=== PATIENT | male | born 2005 | race Caucasian/White ===

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

== ENCOUNTER 2024-01-25 19:04 | Emergency (ER) | payer OTHER, SELFPAY ==
[2024-01-25 19:09] VITALS: BP 131/89; PULSE 82; RESP 16; TEMP 36.6; O2SAT 100
--- NOTE | 2024-01-25 19:10 | ED.GENADULT ---
HPI - General Adult General Chief complaint: Upper Respiratory Infection Stated complaint: Sore Throat Source: patient, RN notes reviewed and old records reviewed Mode of arrival: ambulatory Limitations: no limitations History of Present Illness HPI narrative: [age] year male patient presents to [facility] with complaint sore throat with headache that started 2 days ago. Patient states found today that his girlfriend is positive for strep throat. Patient denies any other symptoms. Related Data Home Medications Medication Instructions Recorded Confirmed No Home Medications 01/25/24 01/25/24 Allergies Allergy/AdvReac Type Severity Reaction Status Date / Time No Known Allergies Allergy Verified 01/25/24 19:17 Review of Systems Constitutional: Constitutional: Reports no additional constitutional complaints, Denies body ache(s), Denies chills, Denies fatigue, Denies fever(s) and Reports headache(s) Eyes: Eyes: Reports no additional eye complaints and Denies blurry vision ENT: Reports system reviewed and no additional complaints, except as documented, Denies vertigo, Denies dizziness, Denies ear discharge, Denies otalgia, Denies facial pain, Denies headache(s), Denies nasal congestion, Denies nasal discharge, Denies sinus pain, Denies sinus pressure and Reports sore throat Cardiovascular: Cardiovascular: Reports no additional cardiovascular complaints, Denies chest pain, Denies chest pain at rest, Denies rapid heart rate and Denies dyspnea Respiratory: Respiratory: Reports no additional respiratory complaints, Denies chest congestion, Denies cough, Denies pain on inspiration, Denies pain with cough and Denies dyspnea Gastrointestinal: Gastrointestinal: Denies abdominal pain, Denies diarrhea, Denies nausea and Denies vomiting Integumentary/Breasts: Skin/Breast: Denies rash Neurologic: Reports system reviewed and no additional complaints, except as documented, Denies vertigo, Denies dizziness and Reports headache(s) Endocrine: Endocrine: Denies fatigue [facility] Social History Social History Smoking status: Never smoker Lack of Transportation: No Lack of Food: Never True Current Housing: I Have Housing Concerned About Future Housing: No Difficulty Paying Gas/Electric Bills: No Difficulty Paying for Meds: No Currently Unemployed: No Education: High School Diploma/GED Difficulty w/ Childcare or Family Care: No Comments At the time of my signature, I reviewed and agree with the nursing past medical, surgical, social, and family history. There is no relevant family history pertinent to the patient complaint. Exam Const: General: cooperative, healthy appearing, no acute distress and well nourished Nutritional Appearance: well nourished Orientation/consciousness: patient oriented x3 Limitations: no limitations HENMT: Head: normal to inspection and normocephalic Ears: external ears normal, TM's normal bilaterally, EAC's normal and mastoids normal Face/Nose/Sinus: normal facial exam Face and sinus: normal facial exam Mouth: Yes Normal oral and palatal mucosa present, Yes oropharynx normal and Yes moist mucous membranes Throat: tonsils normal, uvula midline, abnormal tonsil bilateral erythema, posterior oropharynx abnormal erythema, no postnasal drainage and no uvular edema Eyes: General: appearance normal, both eyes and all related structures Sclera: sclerae normal Pupils: Equal, round and reactive pupils present Resp: Effort & Inspection: normal respiratory effort, able to speak in complete sentences, no audible wheezes, no cough, no respiratory distress and no retractions Auscultation: clear to auscultation bilaterally, no crackles, no rales, no rhonchi and no wheezes Cardio: Rate: regular rate Rhythm: regular rhythm Skin: General skin exam: normal color and no rashes or lesions noted Neuro: General: patient oriented x3 Cranial nerve
[2024-01-25 19:18] VITALS: BP 131/89; PULSE 82; RESP 16; TEMP 36.6; O2SAT 100
[2024-01-25 19:19] VITALS: BP 123/79; PULSE 108; RESP 20; TEMP 37.1; O2SAT 100
== END 2024-01-25 19:34 | disposition home or self-care (01) ==
PROVIDERS: Emergency Provider Registered Nurse; PCP Internal Medicine
DX: J02.9 Acute pharyngitis, unspecified (principal); Z20.822 Contact with and (suspected) exposure to COVID-19
CPT/HCPCS: 87081; 87426; 87804; 87880; 99213; G0463

== ENCOUNTER 2025-02-23 23:51 | Emergency (ER) | payer OTHER, SELFPAY ==
--- NOTE | ~2025-02-23 | XR_ITS ---
Right ankle Technique: AP, oblique, and lateral views were obtained. Clinical History: Injury Findings: No acute fracture or dislocation is seen. Osseous alignment is anatomic. Ankle mortise and other visualized joint spaces are preserved. Prominent anterior and lateral soft tissue swelling note d. Impression: No fracture or dislocation. Prominent anterior and lateral soft tissue swelling. Reviewed, dictated and finalized at location M. Impression: No fracture or dislocation. Prominent anterior and lateral soft tissue swelling.
--- OUTSIDE RECORDS SUMMARY | 2025-02-23 23:53 | XMS_ITS | Clinical Summary ---
Author Organization [address] Address [address] [place] [id number] Care Team Providers Care Concert Pianist Name Role Phone Raghav Ingram MD Primary Care Provider Allergies No known active allergies Medications albuterol HFA (PROVENTIL HFA,VENTOLIN HFA,PROAIR HFA) 90 mcg/actuation inhaler Inhale 2 puffs every 6 (six) hours as needed for wheezing 1 each 1 3 Active Additional Information Patient not taking.Reported on 01/20/2023 fexofenadine HCl (ESTEE ORAL) Take by mouth Active fluticasone propionate (FLONASE NASL) Administer into affected nostril(s) Active albuterol HFA (PROVENTIL HFA,VENTOLIN HFA,PROAIR HFA) 90 mcg/actuation inhalerIndicati ons:Shortness of breath Inhale 2 puffs every 6 (six) hours as needed for wheezing or shortness of breath 1 each 3 Active Hospital, Clinic, or Other Facility Administered Medication Ordered Dose Route Frequency Start Date End Date Status albuterol 2.5 mg /3 mL (0.083 %) nebulizer solution 2.5 mgIndications:Shortne ss of breath 2.5 mg nebu 4 times daily (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 Never 11/26/2022 Average Number of Drinks Not on file 023 Frequency of Binge Drinking Not on file 11/09 Personal Safety Answer Date Recorded Getting School Help Needed Not on file 11/15 Sex and Gender Information Value Date Recorded Sex Assigned at Not on file Legal Sex Male 7:33 PM [employer] Gender Identity Not on file Sexual Orientation Not on file Obstetrics History Last Filed Vital Signs Vital Sign Reading Time Taken Comments Blood Pressure 133/66 01/21/2023 8:37 PM CDT Pulse 114 01/21/2023 9:32 PM CDT Temperature 36.9 C (98.4 F) 01/21/2023 8:37 PM CDT Respiratory Rate 20 01/21/2023 9:32 PM CDT Oxygen Saturation 98% 01/21/2023 9:32 PM CDT Inhaled Oxygen Concentration - - Weight 77.7 kg (171 lb 4.8 oz) 01/21/2023 8:37 P M CDT Height 180.3 cm (5' 11 ) 01/20/2023 10:50 AM CDT Body Mass Index 23.89 01/20/2023 10:50 AM CDT Plan of Treatment Health Maintenance Due Date Last Done Comments Depression Screening 2004 Hepatitis C Screening 2004 Regular Well Visit/Exam 18-64 2022 Covid-19 Vaccine (2023- 5 season) 2024 03/08/2021, 02/15/2021 Influenza Vaccine (Season Ended) 2025 10/28/2005, 10/28/2005, 09/22/2005, Additional history exists DTaP/Tdap/Td Vaccine (8 - Td or Tdap) 06/17/2032 06/17/2022, 06/14/2015, 06/12/2009, Additional history exists Pneumococcal vaccine <65 Completed 005, 07/15/2005, 2004, Additional history exists Hepatitis B Screening Completed 12/30/2006 , 06/25/2006, 09/22/2005, Additional history exists Varicella Vaccines Completed 06/12/2009, 07/14/2007 HPV Vaccines Completed 12/04/2020, 12/2019, 05/31/2020 Meningococcal Vaccine Completed 05/28/2021, 015 Meningococcal B Vaccine Completed 11/13/2022, 06/03 Insurance [facility] Care Teams Concert Pianist Relationship Specialty Start Date End Date Raghav Ingram MD [address] [place] [address] PCP - General Pediatrics 11/26/22
--- OUTSIDE RECORDS SUMMARY | 2025-02-23 23:53 | XMS_ITS | Continuity of Care Document ---
Author Organization [facility] Address [address] [place] [address] Phone Care Team Providers Care Solutions Sales Executive Name Role Phone Chao PT,DPT,ATC,LAT, Kj Unavailable Asuncion vailable Procedures Procedure Date Progress Note Therapeutic Exercise Therapeutic Activities Neuromuscular Re-Ed Manual Therapy Therapeutic Exercise Neuromuscular Re-Ed Therapeutic Exercise Neuromuscular Re-Ed Manual Therapy Therapeutic Exercise Manual Therapy Therapeutic Exercise Neuromuscular Re-Ed Manual Therapy PT Evaluation Low Complexity Therapeutic Exercise Manual Therapy Advance Directives Directive Yes / No Effective Date File Name No Information Encounters Encounter Description Practice Location Reason(s) For Visit Diagnoses Date Provider Providers [facility]ied on [facility], [address], [place], [place], [id number], tel:[phone] [place] Achilles tendinitis, unspecified legShort Achilles tendon (acquired), unspecified ankleJuvenile osteochondrosis of tarsus, unspecified ankleStiffness of right ankle, not elsewhere classifiedUnspecif ied abnormalities of gait and mobility Apr-0 4-201 [address] [place], [address], . tel:[phone] [facility], [address], [id number], [place] tel:[phone] [place] Achilles tendinitis, unspecified legShort Achilles tendon (acquired), unspecified ankleJuvenile osteochondrosis of tarsus, unspecified ankleStiffness of right ankle, not elsewhere classifiedUnspecif ied abnormalities of gait and mobility Apr-0 2-201 [address] [place], [address], . tel:[phone] [facility], [address], [id number], [place] tel:[phone] [place] [facility] Achilles tendinitis, unspecified legShort Achilles tendon (acquired), unspecified ankleJuvenile osteochondrosis of tarsus, unspecified ankleStiffness of right ankle, not elsewhere classifiedUnspecif ied abnormalities of gait and mobility Mar-2 5-201 [address] [place], [address], . tel:[phone] [facility], [address], [id number], [place] tel:[phone] [place] Achilles tendinitis, unspecified legShort Achilles tendon (acquired), unspecified ankleJuvenile osteochondrosis of tarsus, unspecified ankleStiffness of right ankle, not elsewhere classifiedUnspecif ied abnormalities of gait and mobility Mar-2 1- [address] [place], [address], [place]. tel:[phone] [facility], [address], [id number], [place] tel:[phone] [place] Achilles tendinitis, unspecified legShort Achilles tendon (acquired), unspecified ankleJuvenile osteochondrosis of tarsus, unspecified ankleStiffness of right ankle, not elsewhere classifiedUnspecif ied abnormalities of gait and mobility Jan-2 0-201 9 [address] [place], [address], [place]. tel: [phone] [facility], [address], [place], [place], [id number], [place] tel:[phone] [place] Achilles tendinitis, unspecified legShort Achilles tendon (acquired), unspecified ankleJuvenile osteochondrosis of tarsus, unspecified ankleStiffness of right ankle, not elsewhere classifiedUnspecif ied abnormalities of gait and mobility Jan-1 8201 [address] [place], [address], [place]. tel: [phone] Family History Family Member Type Diagnosis Age At Onset No Information Payers Payer name Insurance type Covered green party ID Authoraloka tigriffin(s) [facility] [id number] Social History Type Description Quantity Date Captured Comments Sex Male Smoking Status No Information Chief Complaint And Reason For Visit No Information Reason For Referral Reason For Referral No Information History Of Present Illness Encounter Date Complaint History Of Prese nt Illness No Information Functional Status Date Functional Assessmen t No Information Instructions Date Instruction Additional Infor mation No Information Assessments Type Assessment Date No Information Patient Care Teams Name Effective Dates (start - stop) Status Members No Information
--- OUTSIDE RECORDS SUMMARY | 2025-02-23 23:53 | XMS_ITS | Referral Summary ---
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 [address] [place] [address] [facility] CHO[facility] H[facility]/PPO Address: [address] [address] [place] [address] [facility] CHOICE PLUS [facility] HMO/PPO Address: [address] [address] [place] [address] Care Teams Siphon Operator Relationship Specialty Start Date End Date Raghav Ingram MD [address] [place] [address] PCP - General Pediatrics 11/26/22
--- OUTSIDE RECORDS SUMMARY | 2025-02-23 23:53 | XMS_ITS | Clinical Summary ---
Author Organization [facility] Address [address] [place] [address] Phone Care Team Providers Care Ornamental Painter Name Role Phone Raghav Ingram MD Primary Care Provider Allergies Active Allergy Reactions Criticality Noted Date Comments No Known Drug Allergy Unknown 03/22/2013 Medications Fexofenadine HCl (ESTEE PO) Take 1 Tablet by mouth daily. 24 hour Active Fluticasone Propionate (FLONASE NA) 2 Sprays by Nasal route daily. Active albuterol (PROVENTIL, VENTOLIN) (2.5 MG/3ML) 0.083% Nebulizer Soln take 2.5 mg by inhalation. 3 Active guaiFENesin (MUCINEX PO) Take by mouth. Ac tive Acetaminophen (TYLENOL PO) Take by mouth. Ac tive Polyethylene Glycol 3350 (MIRALAX PO) Take by mouth. Ac tive docusate sodium (COLACE) 100 MG Capsule Take 1 Capsule by mouth 2 times daily. 180 Capsule 3 3 Active Additional Information Patient not taking.Reported on 09/29/2023 Active Problems No known active problems Immunizations Immunization Administration Dates Next Due Covid-19, Mrna, Lnp-s, Pf, 3 0 Mcg/0.3 Ml Dose (MediSens) 03/08/2021,02/15/2021 DTAP VACCINE 09/22/2005, 5,2004,08/26 DTAP-IPV 06/12/2009 HEP A/HEP B Combined Vaccine 12/30/2006,06/25/20 06 HEP B/HIB Combined Vaccine 09/22/2005,2004 ,2004 Hepatitis A Vaccine 06/25/2006 Human Papillomavirus (HPV) 9 -valent Vaccine 12/04/2020,07/11/2020,05/31/2020 Inactivated Polio Vaccine 07/15/2005,2004, 2004 Influenza Vaccine less than 3 yrs 10/28/2005, MMR Vaccine 06/12/2009,07/15/2005 Meningococcal Group B OMV 11/13/2022,06/03/2022 Meningococcal MCV4O 05/28/2021 PUR MENINGOCOCCAL MCV4O 06/14/2015 PUR POLIO IPV INACTIVATED SQ/IM 06/14/2015 PUR TDAP 7+ YRS IM 06/14/2015 Pneumococcal Vaccine Peds - 7 Valent 04/2005,2004,2004,08/26 TDAP Vaccine 06/17/2022 Varicella Vaccine Live 06/12/2009,07/14/2007 Family History Relation Name Status Comments Father Alive Mother Alive Social History Tobacco Use Types Packs/Day Years Used Date Smoking Tobacco: Never Smokeless Tobacco: Never Tobacco Cessation:Counseling Given: No Alcohol Use Standard Drinks/Week Comments Never 0 (1 standard drink = 0.6 oz pur e alcohol) PHQ-2 Answer Date Recorded Total Score - Questions 1-9 0 09/10 Sex and Gender Information Value Date Recorded Sex Assigned at Male 06/23/2023 9:34 AM CDT Legal Sex Male 3:00 AM OVERHEAD IRRIGATOR Gender Identity Male 06/23/2023 9:34 AM CDT Sexual Orientation Not on file Last Filed Vital Signs Vital Sign Reading Time Taken Comments Blood Pressure 134/70 10/04/2024 10:07 AM OVERHEAD IRRIGATOR Pulse 88 10/04/2024 10:07 AM OVERHEAD IRRIGATOR Temperature 36.9 C (98.5 F) 01/26/2023 9:15 AM CDT Respiratory Rate 20 10/04/2024 10:0 7 AM OVERHEAD IRRIGATOR Oxygen Saturation 96% 01/26/2023 9:15 AM CDT Inhaled Oxygen Concentration - - Weight 78.4 kg (172 lb 12.8 oz) 024 10:07 AM OVERHEAD IRRIGATOR Height 180.2 cm (5' 10.95 ) 10/04/2024 10:07 AM OVERHEAD IRRIGATOR Body Mass Index 24.14 10/04/2024 10:07 AM OVERHEAD IRRIGATOR Plan of Treatment Health Maintenance Due Date Last Done Comments Hepatitis C Virus (HCV) Screening 2004 Influenza Immunization (#1) 2024 10/28/2005, 1 2004 SARS-COV-2 Immunization ( season) 2024 03/08/2021, 02/15/2021 DTaP/Tdap/Td Immunization (8 - Td or Tdap) 06/17/2032 06/17/2022, 06/14/2015, 06/12/2009, Additional history exists Respiratory Syncytial Virus (RSV) Immunization (Adult) (1 - 1-dose 75+ series) 2079 Pneumococcal Immunization Combined Aged Out 07/15/2005, 2004, 2004, Additional history exists No longer eligible based on patient's age to complete this topic Hepatitis A Immunization Discontinued 007, 06/25/2006, 06/25/2006 Hepatitis B Immunization Completed 007, 06/25/2006, 09/22/2005, Additional history exists Measles Mumps Rubella (MMR) Immunization Discontinued 06/12/2009, 07/15/2005 Varicella Immunization Discontinued 06/12/2009, 2006 Polio (IPV) Immunization Discontinued 015, 06/12/2009, 07/15/2005, Additional history exists Human Papillomavirus (HPV) Immunization Completed 12/04/2020, 07/11/2020, 05/31/2020 Meningococcal Immunization (ACWY) Completed 05/28/2021, 06/14/2015 Meningococcal B Immunization Completed 11/13/2022, 06/03/2022 Rotavirus Immunization Aged Out No lo nger eligible based on patient's age to complete this topic Insurance [facility] Care Teams Ornamental Painter Relationship Specialty Start Date End Date Raghav Ingram MD [address], [place] [id number] PCP - General Pediatrics 03/22/13
--- OUTSIDE RECORDS SUMMARY | 2025-02-23 23:53 | XMS_ITS | Encounter Summary ---
Author Organization [facility] Address [address] [facility] [place] [address] Phone Care Team Providers Care Assembler Camper Name Role Phone Raghav Ingram MD Primary Care Provider [phone] Reason for Visit * Reason Onset Date Comments Letter for School/Work 11/15/2021 Encounter Details Date Type Department Care Team ([facility] st Contact Info) Description 11/15/2021 Telephone [facility] Call Center [address] [place] [address] Raghav Ingram MD [address] [place] [address] Letter for School/Work Social History Tobacco Use Types Packs/Day Years Used Date Smoking Tobacco: Never Smokeless Tobacco: Never Alcohol Use Standard Drinks/Week Comments Not Asked 0 (1 standard drink = 0.6 oz pur e alcohol) PHQ-2 Answer Date Recorded Total Score - Questions 1-9 0 05/10 Sex and Gender Information Value Date Recorded Sex Assigned at Male 06/23/2023 9:34 AM CDT Legal Sex Male 3:00 AM SPEECH COACH Gender Identity Male 06/23/2023 9:34 AM CDT Sexual Orientation Not on file COVID-19 Exposure Response Date Recorded In the last month, have you been in contact with someone who was confirmed or suspected to have Coronavirus / COVID-19? Yes 11/15/2021 8:23 AM SPEECH COACH documented as of this encounter Miscellaneous Notes * Telephone Encounter - Alexa Upton RN - 11/18/2021 8:26 AM SPEECH COACH Spoke with patient's mother and she had him tested at [facility] this past Thursday and he was positive. Hasn't had symptoms since Thursday or of last week. Mother is keeping him out of school the full [address] Joseph to notify. CH COACH * Telephone Encounter - Hudson Joseph MD - 11/15/2021 12:15 PM SPEECH COACH Mom told me he was going to get the covid test at [facility] hence it was not done today in office. . He has close covid exposure and had covid compatible symptoms but is not tested so needs to follow quarantine quidelines which will be 10 days after the day he started with symptoms which was Thursday. The 5 day isolation is for asymptomatic patients only. Let us know what his covid test results are and can give letter after that. CH COACH * Telephone Encounter - Ryder Finn RN - 11/15/2021 11:49 AM CST Pt seen in the office today Mother asking for a medical clearance letter to return back to school. States is covid symptom free Letter penned for approval CH COACH documented in this encounter Plan of Treatment Not on file documented as of this encounter Visit Diagnoses Not on filedocumented in this encounter Additional Health Concerns Infection Onset Date Last Indicated Resolved Time COVID - 19 12/30/2021 12/30/2021 12/30/2021 3:20 PM SPEECH COACH Influenza 12/30/2021 12/30/2021 01/06/2022 12:1 6 AM SPEECH COACH Assessment Noted Time PHQ-9 Depression Total Score: 0 05/28/20 10:49 AM CDT documented as of this encounter Care Teams Assembler Camper Relationship Specialty Start Date End Date Raghav Ingram MD [address] [place] [address] PCP - General Pediatrics 03/22/13 documented as of this encounter
[2025-02-23 23:55] VITALS: BP 138/96; PULSE 140; RESP 20; TEMP 36.6; O2SAT 100
[2025-02-24 04:30] VITALS: BP 118/78; PULSE 90; RESP 14; O2SAT 100
--- OUTSIDE RECORDS SUMMARY | 2025-02-24 07:12 | XMS_ITS | Clinical Summary ---
Author Organization [facility] Address [address] [place] [address] Phone Care Team Providers Care Roller Cleaner Name Role Phone Raghav Ingram MD Primary [...] Lnp-s, Pf, 3 0 Mcg/0.3 Ml Dose ([facility] [place]) 03/08/2021,02/15/2021 DTAP VACCINE 09/22/2005, 5,2004,08/26 DTAP-IPV 06/12/2009 [...] AM CDT Legal Sex Male 3:00 AM CORD TIRE BUILDER Gender Identity Male 06/23/2023 9:34 AM CDT Sexual Orientation Not on file Last Filed Vital Signs Vital Sign Reading Time Taken Comments Blood Pressure 134/70 10/04/2024 10:07 AM CORD TIRE BUILDER Pulse 88 10/04/2024 10:07 AM CORD TIRE BUILDER Temperature 36.9 C (98.5 F) 01/26/2023 9:15 AM CDT Respiratory Rate 20 10/04/2024 10:0 7 AM CORD TIRE BUILDER Oxygen Saturation 96% 01/26/2023 9:15 AM CDT Inhaled Oxygen Concentration - - Weight 78.4 kg (172 lb 12.8 oz) 024 10:07 AM CORD TIRE BUILDER Height 180.2 cm (5' 10.95 ) 10/04/2024 10:07 AM CORD TIRE BUILDER Body Mass Index 24.14 10/04/2024 10:07 AM CORD TIRE BUILDER Plan of Treatment Health Maintenance Due Date [...] age to complete this topic Insurance [facility] Care Teams Roller Cleaner Relationship Specialty Start Date End Date Raghav Ingram MD [address] [place], [place] [id number] PCP - General Pediatrics 03/22/13
--- OUTSIDE RECORDS SUMMARY | 2025-02-24 07:12 | XMS_ITS | Encounter Summary ---
Author Organization [facility] Address [address] [facility] [place] [address] Phone Care Team Providers Care Environmental Services Lead Name Role Phone Raghav Ingram MD Primary Care Provider Reason for Visit * Reason Onset Date Comments Letter for School/Work 11/15/2021 Encounter Details Date Type Department Care Team ([facility] st Contact Info) Description 11/15/2021 Telephone [facility] Call Center [address] [place] [address] Raghav Ingram MD [address] [place] [address] Letter for School/Work Social History [...] AM CDT Legal Sex Male 3:00 AM INJECTION MOLDING MACHINE OFFBEARER Gender Identity Male 06/23/2023 9:34 AM CDT Sexual Orientation Not on file COVID-19 Exposure Response Date Recorded In the last month, have you been in contact with someone who was confirmed or suspected to have Coronavirus / COVID-19? Yes 11/15/2021 8:23 AM INJECTION MOLDING MACHINE OFFBEARER documented as of this encounter Miscellaneous Notes * Telephone Encounter - Alexa Upton RN - 11/18/2021 8:26 AM INJECTION MOLDING MACHINE OFFBEARER Spoke with patient's mother and she had him tested at [facility] this past Thursday and he was positive. Hasn't had symptoms since Thursday or of last week. Mother is keeping him out of school the full [address] Joseph to notify. CTION MOLDING MACHINE OFFBEARER * Telephone Encounter - Hudson Joseph MD - 11/15/2021 12:15 PM INJECTION MOLDING MACHINE OFFBEARER Mom told me he was going to get the covid test at [facility] hence it was not done today [...] are and can give letter after that. CTION MOLDING MACHINE OFFBEARER * Telephone Encounter - Ryder Finn RN - 11/15/2021 11:49 AM CST Pt seen in the office today Mother asking for a medical clearance letter to return back to school. States is covid symptom free Letter penned for approval CTION MOLDING MACHINE OFFBEARER documented in this encounter Plan of Treatment Not on file documented as of this encounter Visit Diagnoses Not on filedocumented in this encounter Additional Health Concerns Infection Onset Date Last Indicated Resolved Time COVID - 19 12/30/2021 12/30/2021 12/30/2021 3:20 PM INJECTION MOLDING MACHINE OFFBEARER Influenza 12/30/2021 12/30/2021 01/06/2022 12:1 6 AM INJECTION MOLDING MACHINE OFFBEARER Assessment Noted Time PHQ-9 Depression Total Score: 0 05/28/20 10:49 AM CDT documented as of this encounter Care Teams Environmental Services Lead Relationship Specialty Start Date End Date Raghav Ingram MD [address] [place] [address] PCP - General Pediatrics 03/22/13 documented as of this encounter
--- OUTSIDE RECORDS SUMMARY | 2025-02-24 07:13 | XMS_ITS | Clinical Summary ---
Author Organization [address] Address [address] [place] [id number] Care Team Providers Care Professor Of Political Science Name Role Phone Raghav Ingram MD Primary [...] breath 2.5 mg nebu 4 times daily (customer response representative) 01/22/2023 Active Active Problems No known active [...] on file Legal Sex Male 7:33 PM CAR RACER Gender Identity Not on file Sexual Orientation [...] Meningococcal B Vaccine Completed 11/13/2022, 06/03 Insurance [facility] CHO[facility] PLUS [facility] CHO[facility] [place] [address] Care Teams Professor Of Political Science Relationship Specialty Start Date End Date Raghav Ingram MD [address] [place] [address] PCP - General Pediatrics 11/26/22
--- OUTSIDE RECORDS SUMMARY | 2025-02-24 07:13 | XMS_ITS | Referral Summary ---
Author Organization [address] Address [address] [place] [address] Care Team Providers Care Wool Shearer Name Role Phone Raghav Ingram MD Primary [...] breath 2.5 mg nebu 4 times daily (correspondence analyst) 01/22/2023 Active Active Problems No known active [...] on file Legal Sex Male 7:33 PM RECEIVER BULK SYSTEM Gender Identity Not on file Sexual Orientation [...] Plan of Treatment Not on file Insurance [facility] [place] [address] [facility] CHO[facility] PLUS [facility] CHO[facility] PL[facility] Care Teams Wool Shearer Relationship Specialty Start Date End Date Raghav Ingram MD [address] [place] [address] PCP - General Pediatrics 11/26/22
--- OUTSIDE RECORDS SUMMARY | 2025-02-24 07:13 | XMS_ITS | Continuity of Care Document ---
Author Organization [facility] Address [address] [place] [address] Phone Care Team Providers Care Public Services Assistant Name Role Phone Chao PT,DPT,ATC,LAT, Kj Unavailable [...] Diagnoses Date Provider Providers Copied on [facility]counter [facility], [address], [place], [place], [id number], tel:[phone] [place] Achilles tendinitis, unspecified legShort Achilles tendon (acquired), unspecified ankleJuvenile osteochondrosis of tarsus, unspecified ankleStiffness of right ankle, not elsewhere classifiedUnspecif ied abnormalities of gait and mobility Apr-0 4-201 [address] [place], [address], . tel:[phone] [facility], [address], [id number], [place] tel:[phone] [place] Achilles tendinitis, unspecified legShort Achilles tendon (acquired), unspecified ankleJuvenile osteochondrosis of tarsus, unspecified ankleStiffness of right ankle, not elsewhere classifiedUnspecif ied abnormalities of gait and mobility Apr-0 2-201 [address] [place], [address], . tel:[phone] [facility], [address], [id number], [place] tel:[phone] [place] Achilles tendinitis, unspecified legShort Achilles tendon (acquired), unspecified ankleJuvenile osteochondrosis of tarsus, unspecified ankleStiffness of right ankle, not elsewhere classifiedUnspecif ied abnormalities of gait and mobility Mar-2 5-201 [address] [place], [address], . tel:[phone] [facility], [address], [id number], [place] tel:[phone] [place] Achilles tendinitis, unspecified legShort Achilles tendon (acquired), unspecified ankleJuvenile osteochondrosis of tarsus, unspecified ankleStiffness of right ankle, not elsewhere classifiedUnspecif ied abnormalities of gait and mobility Mar-2 1- 9 [address] [place], [address], [place]. tel:[phone] [facility], [address], [id number], [place] tel:[phone] [place] Achilles tendinitis, unspecified legShort Achilles tendon (acquired), unspecified ankleJuvenile osteochondrosis of tarsus, unspecified ankleStiffness of right ankle, not elsewhere classifiedUnspecif ied abnormalities of gait and mobility Jan-2 0-201 9 [address] [place], [address], [place]. tel: [phone] [employer] [facility], [address], [place], [place], [id number], [place] tel:[phone] [place] Achilles tendinitis, unspecified legShort Achilles tendon (acquired), unspecified ankleJuvenile osteochondrosis of tarsus, unspecified ankleStiffness of right ankle, not elsewhere classifiedUnspecif ied abnormalities of gait and mobility Jan-1 8201 9 [address] [place], [address], [place]. tel: [phone] Family History Family Member Type Diagnosis Age At Onset No Information Payers Payer name Insurance type Covered constitution party ID Authoraloka tigriffin(s) [facility] [id number] Social History Type Description Quantity Date Captured [...]
== END 2025-02-24 04:30 | disposition home or self-care (01) ==
LOC: ANHED 02-24 07:10
PROVIDERS: Emergency Provider Emergency Medicine; PCP Internal Medicine
DX: S93.401A Sprain of unspecified ligament of right ankle, initial encounter (principal); X58.XXXA Exposure to other specified factors, initial encounter; Y93.61 Activity, american tackle football
CPT/HCPCS: 73610; 99283; A9270